=== PATIENT | female | born 1950 | race Caucasian/White ===

== ENCOUNTER → 2024-05-25 10:42 | Outpatient (REF) | payer MEDICARE, OTHER, SELFPAY | LOC: HWWDC 10:42 | PROVIDERS: ATTENDING PHYSICIAN Internal Medicine | DX: Z12.31 Encounter for screening mammogram for malignant neoplasm of breast (principal) | CPT/HCPCS: 77063; 77067 ==

== ENCOUNTER 2025-02-11 00:52 | Inpatient (IN) | payer MEDICARE, OTHER, SELFPAY ==
[2025-02-10 23:07] VITALS: BP 155/71
[2025-02-10 23:11] VITALS: BP 155/71
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
[2025-02-10 23:58] LABS: Hematocrit 41.3 % (37.0-47.0); Hemoglobin 13.9 g/dL (12.0-16.0); Mean Corp Hgb Conc. 33.7 g/dL (33.0-37.0); Mean Corpuscular Hgb 29.7 pg (27.0-31.0); Mean Corpuscular Volume 88.2 fL (81.0-99.0); Mean Platelet Volume 10.8 fL (7.4-10.4); Platelet Count 175 10^3/uL (130-400); Red Blood Cell Count 4.68 10^6/uL (4.20-5.40); Red Cell Dist. Width 13.3 % (11.5-14.5); White Blood Cell Count 23.1 10^3/uL (4.8-10.8)
[2025-02-11] VITALS (10 sets, daily range): BP systolic 102–160; BP diastolic 58–86; PULSE 99; O2SAT 93; BMI 27.9
[2025-02-11] MEDS: NSS 1000 IV (00:02)
[2025-02-11] MEDS: ROCEPHIN 1000 MG IV (00:03)
[2025-02-11] MEDS: DUONEB 3 ML INH ×6 (00:03→19:14)
[2025-02-11] MEDS: ZITHROMAX INFUSION 250 IV (00:03)
[2025-02-11 00:04] LABS: ALT (SGPT) 19 U/L (0-35); AST (SGOT) 32 U/L (14-36); Alkaline Phosphatase 72 U/L (38-126); Blood Urea Nitrogen 14 mg/dl (7-17); Calcium 9.7 mg/dl (8.4-10.2); Carbon Dioxide 22 mmol/L (22-30); Chloride 99 mmol/L (98-107); Glucose 162 mg/dl (70-99); Lactic Acid 1.5 mmol/L (0.7-2.0); Potassium 4.6 mmol/L (3.5-5.1); Sodium 131 mmol/L (135-145); Total Bilirubin 1.2 mg/dl (0.2-1.3); Total Protein 7.1 g/dl (6.3-8.2); eGFR > 60.00
[2025-02-11 00:11] LABS: COVID-19 Antigen Negative (Negative)
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
[2025-02-11] MEDS: OFIRMEV 100 IV (00:18)
[2025-02-11 00:58] LABS: Troponin I 0.013 ng/ml
[2025-02-11 01:02] LABS: Absolute Neutrophils -Man Diff 21.4 10^3/uL (1.4-6.5); Band Neutrophils 22 % (0-3); Eosinophils 4 % (0-6); Lymphocytes 4 % (20-51); Metamyelocytes 1 % (-); Monocytes 2 % (2-9); Segmented Neutrophils 71 % (42-75)
[2025-02-11 01:03] LABS: Normal RBC Morphology Yes; Platelets Checked Yes; Total Cells Counted 100; Toxic Granulation 1+; Vacuolated Segs Occasional
[2025-02-11] MEDS: NSS 500 IV ×2 (04:21→18:18)
[2025-02-11] MEDS: ROBITUSSIN DM 5 ML PO ×3 (04:23→21:20)
[2025-02-11 07:24] LABS: Blood Urea Nitrogen 13 mg/dl (7-17); Calcium 8.8 mg/dl (8.4-10.2); Carbon Dioxide 20 mmol/L (22-30); Chloride 102 mmol/L (98-107); Estimated Creatinine Clearance 74 ml/min; Glucose 121 mg/dl (70-99); Sodium 135 mmol/L (135-145); eGFR > 60.00
[2025-02-11 07:36] LABS: Hematocrit 39.5 % (37.0-47.0); Hemoglobin 13.1 g/dL (12.0-16.0); Mean Corp Hgb Conc. 33.2 g/dL (33.0-37.0); Mean Corpuscular Hgb 30.2 pg (27.0-31.0); Mean Platelet Volume 11.6 fL (7.4-10.4); Platelet Count 167 10^3/uL (130-400); Red Blood Cell Count 4.34 10^6/uL (4.20-5.40); Red Cell Dist. Width 13.3 % (11.5-14.5); White Blood Cell Count 23.9 10^3/uL (4.8-10.8)
[2025-02-11 07:52] LABS: Procalcitonin 1.77 ng/ml (0.0-0.25)
[2025-02-11] MEDS: COZAAR 50 MG PO (08:45)
[2025-02-11] MEDS: MUCINEX 600 MG PO ×2 (08:45→21:16)
[2025-02-11] MEDS: PROTONIX 20 MG PO (08:45)
[2025-02-11] MEDS: ASPIR LOW (ENTERIC COATED) 81 MG PO (08:45)
--- NOTE | 2025-02-11 12:45 | CM ---
CM reviewed chart, patient seen bedside with spouse, initial assessment completed by spouse. Patient and spouse reside together in a two story home, one step to enter, patient bedroom on second floor. Patient has a walker and wheelchair at home,
wheelchair used for longer distances. Spouse reports patient is current with [facility] outpatient therapy, [facility] in past, unsure agency, [facility] in past. Patient PCP [facility], pharmacy [facility], confirms prescription coverage.
Patient currently on O2, does not wear home O2. CM will continue to follow for all discharge planning needs.
Plan; current with outpatient therapy, may need SNF, watch for further recommendations
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
[2025-02-11] MEDS: NSS IV (15:38)
[2025-02-11] MEDS: LOVENOX 40 MG SC (18:18)
[2025-02-11] MEDS: LIPITOR 20 MG PO (21:16)
[2025-02-12] MEDS: STERILE WATER FOR INJECTION 10 ML IV ×2 (01:18→23:03)
[2025-02-12] MEDS: ROCEPHIN 1000 MG IV ×2 (01:18→23:03)
[2025-02-12] MEDS: NSS 500 IV (01:18)
[2025-02-12] MEDS: ZITHROMAX INFUSION 250 IV ×2 (01:19→23:04)
[2025-02-12 03:30] VITALS: BP 171/100
--- NOTE | 2025-02-12 04:20 | PTCARENOTE ---
Patient's automatic BP 171/100, HR 106. Manual BP 166/88. Provider notified. This RN suggested PRN hydralazine for SBP >160. No new orders placed. Will continue to monitor BP and HR.
[2025-02-12] MEDS: NSS IV (04:36)
[2025-02-12 06:45] LABS: Hematocrit 35.8 % (37.0-47.0); Hemoglobin 11.8 g/dL (12.0-16.0); Mean Corpuscular Hgb 29.6 pg (27.0-31.0); Mean Corpuscular Volume 89.7 fL (81.0-99.0); Mean Platelet Volume 10.7 fL (7.4-10.4); Platelet Count 170 10^3/uL (130-400); Red Blood Cell Count 3.99 10^6/uL (4.20-5.40); Red Cell Dist. Width 13.6 % (11.5-14.5); White Blood Cell Count 16.1 10^3/uL (4.8-10.8)
[2025-02-12 07:11] LABS: Blood Urea Nitrogen 11 mg/dl (7-17); Calcium 8.5 mg/dl (8.4-10.2); Carbon Dioxide 21 mmol/L (22-30); Chloride 109 mmol/L (98-107); Estimated Creatinine Clearance 74 ml/min; Glucose 104 mg/dl (70-99); Potassium 4.2 mmol/L (3.5-5.1); Sodium 136 mmol/L (135-145); eGFR > 60.00
[2025-02-12] MEDS: DUONEB 3 ML INH ×3 (07:23→20:44)
[2025-02-12] MEDS: SODIUM CHLORIDE 3% FOR INHALATION 1 VIAL INH ×2 (07:23→20:44)
[2025-02-12 07:42] VITALS: BP 148/85
[2025-02-12] MEDS: ASPIR LOW (ENTERIC COATED) 81 MG PO (08:12)
[2025-02-12] MEDS: PROTONIX 20 MG PO (08:12)
[2025-02-12] MEDS: COZAAR 50 MG PO (08:12)
[2025-02-12] MEDS: MUCINEX 600 MG PO ×2 (08:12→21:29)
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
--- NOTE | 2025-02-12 10:24 | CM ---
Patient seen bedside with spouse, discussed PT recommendation of SNF. Spouse not agreeable to rehab, discussed option for home services, spouse not interested at this time and wants to take patient home upon discharge. Pulmonary following patient,
watch for home O2 needs. CM will continue to follow for all discharge planning needs.
Plan; spouse declining SNF/VN services, home with family, watch for home O2 needs.
[2025-02-12] MEDS: DUONEB INH ×2 (11:14→15:01)
[2025-02-12 11:22] VITALS: BP 148/87
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
[2025-02-12 15:29] VITALS: BP 172/85
[2025-02-12] MEDS: LOVENOX 40 MG SC (18:22)
[2025-02-12] MEDS: LIPITOR 20 MG PO (21:29)
[2025-02-12] MEDS: ROBITUSSIN DM 5 ML PO (22:53)
[2025-02-12 23:15] VITALS: BP 158/82
[2025-02-13] MEDS: ROBITUSSIN DM 5 ML PO ×4 (03:57→22:36)
[2025-02-13 07:10] VITALS: BP 180/91
[2025-02-13 07:14] LABS: Hematocrit 33.2 % (37.0-47.0); Hemoglobin 11.3 g/dL (12.0-16.0); Mean Corpuscular Hgb 30.4 pg (27.0-31.0); Mean Corpuscular Volume 89.2 fL (81.0-99.0); Mean Platelet Volume 11.1 fL (7.4-10.4); Platelet Count 175 10^3/uL (130-400); Red Blood Cell Count 3.72 10^6/uL (4.20-5.40); Red Cell Dist. Width 13.5 % (11.5-14.5); White Blood Cell Count 11.4 10^3/uL (4.8-10.8)
[2025-02-13] MEDS: DUONEB 3 ML INH ×2 (07:18→11:48)
[2025-02-13] MEDS: SODIUM CHLORIDE 3% FOR INHALATION 1 VIAL INH ×2 (07:18→19:26)
[2025-02-13 08:09] LABS: Blood Urea Nitrogen 9 mg/dl (7-17); Calcium 8.5 mg/dl (8.4-10.2); Carbon Dioxide 24 mmol/L (22-30); Chloride 105 mmol/L (98-107); Estimated Creatinine Clearance 74 ml/min; Glucose 113 mg/dl (70-99); Potassium 3.8 mmol/L (3.5-5.1); Sodium 137 mmol/L (135-145); eGFR > 60.00
[2025-02-13] MEDS: COZAAR 50 MG PO (09:18)
[2025-02-13] MEDS: PROTONIX 20 MG PO (09:18)
[2025-02-13] MEDS: MUCINEX 600 MG PO ×2 (09:18→20:48)
[2025-02-13] MEDS: ASPIR LOW (ENTERIC COATED) 81 MG PO (09:18)
[2025-02-13] MEDS: NON-FORMULARY ITEM 75 MG PO (10:42)
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
[2025-02-13 12:19] VITALS: BP 134/75
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
[2025-02-13] MEDS: SODIUM CHLORIDE 3% FOR INHALATION INH (14:07)
[2025-02-13] MEDS: VENTOLIN NEBULES INH (14:07)
[2025-02-13 15:00] VITALS: BP 155/73
[2025-02-13] MEDS: LOVENOX 40 MG SC (17:09)
[2025-02-13] MEDS: VENTOLIN NEBULES 2.5 MG INH (19:26)
[2025-02-13] MEDS: LIPITOR 20 MG PO (20:48)
[2025-02-13] MEDS: STERILE WATER FOR INJECTION 10 ML IV (23:10)
[2025-02-13] MEDS: ZITHROMAX INFUSION 250 IV (23:10)
[2025-02-13] MEDS: ROCEPHIN 1000 MG IV (23:10)
[2025-02-13 23:21] VITALS: BP 167/73
[2025-02-14 04:08] VITALS: BP 149/77
[2025-02-14 06:07] LABS: Hematocrit 34.7 % (37.0-47.0); Hemoglobin 11.5 g/dL (12.0-16.0); Mean Corp Hgb Conc. 33.1 g/dL (33.0-37.0); Mean Corpuscular Hgb 29.9 pg (27.0-31.0); Mean Corpuscular Volume 90.1 fL (81.0-99.0); Mean Platelet Volume 11.1 fL (7.4-10.4); Platelet Count 194 10^3/uL (130-400); Red Blood Cell Count 3.85 10^6/uL (4.20-5.40); Red Cell Dist. Width 13.6 % (11.5-14.5); White Blood Cell Count 7.5 10^3/uL (4.8-10.8)
[2025-02-14 06:38] LABS: Blood Urea Nitrogen 9 mg/dl (7-17); Calcium 8.9 mg/dl (8.4-10.2); Carbon Dioxide 25 mmol/L (22-30); Chloride 104 mmol/L (98-107); Estimated Creatinine Clearance 63 ml/min; Glucose 115 mg/dl (70-99); Potassium 3.8 mmol/L (3.5-5.1); Sodium 137 mmol/L (135-145); eGFR > 60.00
[2025-02-14] MEDS: VENTOLIN NEBULES 2.5 MG INH ×3 (07:13→19:35)
[2025-02-14] MEDS: SODIUM CHLORIDE 3% FOR INHALATION 1 VIAL INH ×3 (07:13→19:35)
[2025-02-14 07:32] VITALS: BP 136/93
[2025-02-14] MEDS: MUCINEX 600 MG PO ×2 (07:33→20:16)
[2025-02-14] MEDS: ASPIR LOW (ENTERIC COATED) 81 MG PO (07:33)
[2025-02-14] MEDS: NON-FORMULARY ITEM 75 MG PO (07:33)
[2025-02-14] MEDS: COZAAR 50 MG PO (07:33)
[2025-02-14] MEDS: ROBITUSSIN DM 5 ML PO ×3 (07:33→23:26)
[2025-02-14] MEDS: PROTONIX 20 MG PO (07:33)
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
[2025-02-14] MEDS: MILK OF MAGNESIA 30 ML PO (14:09)
[2025-02-14 15:00] VITALS: BP 123/59
[2025-02-14] MEDS: LOVENOX 40 MG SC (17:02)
[2025-02-14] MEDS: LIPITOR 20 MG PO (22:09)
[2025-02-14] MEDS: ROCEPHIN 1000 MG IV (23:26)
[2025-02-14] MEDS: STERILE WATER FOR INJECTION 10 ML IV (23:26)
[2025-02-14] MEDS: ZITHROMAX INFUSION 250 IV (23:27)
[2025-02-14 23:34] VITALS: BP 127/76
[2025-02-15] MEDS: ROBITUSSIN DM 5 ML PO (06:01)
[2025-02-15 07:30] VITALS: BP 150/81
[2025-02-15] MEDS: VENTOLIN NEBULES 2.5 MG INH ×2 (07:40→13:44)
[2025-02-15] MEDS: SODIUM CHLORIDE 3% FOR INHALATION 1 VIAL INH ×2 (07:40→13:44)
[2025-02-15] MEDS: PROTONIX 20 MG PO (09:39)
[2025-02-15] MEDS: MUCINEX 600 MG PO (09:39)
[2025-02-15] MEDS: ASPIR LOW (ENTERIC COATED) 81 MG PO (09:40)
[2025-02-15] MEDS: COZAAR 50 MG PO (09:40)
[2025-02-15] MEDS: NON-FORMULARY ITEM 75 MG PO (09:40)
[2025-02-15 10:48] VITALS: BP 118/67; PULSE 87; O2SAT 94
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
[2025-02-15 11:21] LABS: Hematocrit 37.3 % (37.0-47.0); Hemoglobin 12.2 g/dL (12.0-16.0); Mean Corp Hgb Conc. 32.7 g/dL (33.0-37.0); Mean Corpuscular Hgb 29.5 pg (27.0-31.0); Mean Corpuscular Volume 90.3 fL (81.0-99.0); Mean Platelet Volume 10.8 fL (7.4-10.4); Platelet Count 206 10^3/uL (130-400); Red Blood Cell Count 4.13 10^6/uL (4.20-5.40); Red Cell Dist. Width 13.6 % (11.5-14.5)
--- NOTE | 2025-02-15 11:48 | CM ---
Spoke with patient an spouse bedside.
Patient remains on oxygen 2 liters.
Continues IV anbx and nebs.
Discussed home with VN and oxygen.
PT recommending skilled rehab, patient and spouse not agreeable at this time, would prefer home with VN.
Patient and and spouse agreeable to [facility].
Referrals placed to [facility].
Plan: home with [facility] and possible home oxygen needs.
[2025-02-15 13:38] LABS: Blood Urea Nitrogen 13 mg/dl (7-17); Calcium 8.9 mg/dl (8.4-10.2); Carbon Dioxide 27 mmol/L (22-30); Chloride 107 mmol/L (98-107); Estimated Creatinine Clearance 63 ml/min; Glucose 112 mg/dl (70-99); Potassium 4.2 mmol/L (3.5-5.1); Sodium 141 mmol/L (135-145); eGFR > 60.00
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
--- NOTE | 2025-02-15 13:49 | W.DS.TRANS ---
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
-
Discharge Instructions:
Discharge Diagnosis/Procedures Sepsis - POA
RML and RLL pneumonia
Acute hypoxic respiratory failure
Diet Low Fat,Low Cholesterol
Activity As tolerated
Blood Work cbc and bmp in 3-5 days
Instructions:
Stand-Alone Forms:
Changes to Home Medications: Yes
Discharge Medications:
DC Medications w/original date entered in [employer]
aspirin 81 mg tablet,delayed release 81 mg PO DAILY Blood clot prevention/tx 02/19/18
losartan 50 mg tablet 50 mg PO DAILY Blood pressure 01/12/19
acetaminophen 500 mg tablet 1,000 mg PO Q6HPRN PRN head ache/mild pain 02/10/25
atorvastatin 20 mg tablet 20 mg PO HS High Cholesterol 02/10/25
cholecalciferol (vitamin D3) 25 mcg (1,000 unit) tablet (Vitamin D3) 25 mcg PO DAILY Supplement 02/10/25
coenzyme Q10 100 mg capsule (CoQ-10) 100 mg PO DAILY Supplement 02/10/25
d-mannose 1 ea PO BID Supplement 02/10/25
magnesium oxide 800 mg PO DAILYPRN PRN constipation 02/10/25
methenamine hippurate 1 gram tablet 1 g PO DAILY Infection 02/10/25
metronidazole 0.75 % topical cream 1 applic topical BIDPRN PRN rosacea 02/10/25
omeprazole 10 mg capsule,delayed release 10 mg PO DAILY Gastrointestinal Issue 02/10/25
vibegron 75 mg tablet (Gemtesa) 75 mg PO DAILY Urinary Issue 02/10/25
albuterol sulfate 2.5 mg/3 mL (0.083 %) solution for nebulization 2.5 mg (3 mL) inhalation R Q4HPRN PRN shortness breath/wheezing #180 mL 02/15/25
azithromycin 250 mg tablet 500 mg (2 x 250 mg) PO Q24H 1 day #2 tabs 02/15/25
cefdinir 300 mg capsule 300 mg PO Q12H 3 days #6 caps 02/15/25
Home Medication Changes
albuterol sulfate 2.5 mg/3 mL (0.083 %) solution for nebulization 2.5 mg (3 mL) inhalation R Q4HPRN PRN shortness breath/wheezing #180 mL 02/15/25
azithromycin 250 mg tablet 500 mg (2 x 250 mg) PO Q24H 1 day #2 tabs 02/15/25
cefdinir 300 mg capsule 300 mg PO Q12H 3 days #6 caps 02/15/25
Pending Results: No
--- NOTE | 2025-02-15 14:14 | VNURNOTE ---
Home health liaison met with patient and spouse to discuss [facility] services, visit scheduling/frequency, homebound status and pet policy. Patient/spouse understand home visits will be 1-2 times a week to assess and teach medical management. Patient
aware a visiting nurse will contact them for start of care within 1-2 days after discharge from . [facility] Referral completed in care port. Patient states she does not require oxygen at discharge. Is currently on room air.
[2025-02-15 15:33] VITALS: BP 110/65
== END 2025-02-15 17:17 | disposition home health service (06) | DRG 871 ==
LOC: 4 EAST ACU 00:52
PROVIDERS: Hospitalist; ADMITTING PHYSICIAN Internal Medicine; ATTENDING PHYSICIAN Internal Medicine; CONSULT PHYSICIAN Internal Medicine Critical Care Medicine; EMERGENCY PHYSICIAN Emergency Medicine
DX: A41.9 Sepsis, unspecified organism (principal); J18.9 Pneumonia, unspecified organism; J69.0 Pneumonitis due to inhalation of food and vomit; I69.354 Hemiplegia and hemiparesis following cerebral infarction affecting left non-dominant side; J98.11 Atelectasis; T17.590A Other foreign object in bronchus causing asphyxiation, initial encounter; G25.9 Extrapyramidal and movement disorder, unspecified; K44.9 Diaphragmatic hernia without obstruction or gangrene; E78.00 Pure hypercholesterolemia, unspecified; Z11.52 Encounter for screening for COVID-19; F41.9 Anxiety disorder, unspecified; N32.81 Overactive bladder; J45.909 Unspecified asthma, uncomplicated; I10 Essential (primary) hypertension; K21.9 Gastro-esophageal reflux disease without esophagitis; Z88.0 Allergy status to penicillin; Z79.82 Long term (current) use of aspirin; Z86.718 Personal history of other venous thrombosis and embolism; Z80.1 Family history of malignant neoplasm of trachea, bronchus and lung; Z98.1 Arthrodesis status; M81.0 Age-related osteoporosis without current pathological fracture; R13.10 Dysphagia, unspecified; Z87.440 Personal history of urinary (tract) infections; Z95.828 Presence of other vascular implants and grafts; Z99.3 Dependence on wheelchair; Z74.01 Bed confinement status
CPT/HCPCS: 71046; 71250; 80048; 80053; 83605; 84145; 84484; 85025; 85027; 87040; 87070; 87077; 87186; 87205; 87502; 87811; 93005; 94640; 94667; 94668; 94669; 96361; 96365; 96375; 97163; 97530; 99285

== ENCOUNTER 2025-05-09 18:28 | Inpatient (IN) | payer MEDICARE, OTHER, SELFPAY ==
[2025-05-09 12:32] VITALS: BP 149/75
[2025-05-09 12:53] LABS: % Basophils 0.5 % (0-2); % Eosinophils 1.3 % (0-6); % Immature Granulocytes 0.2 % (0-0.5); % Lymphocytes 25.9 % (20.5-51.1); % Monocytes 6.5 % (1.7-9.3); % Neutrophils 65.6 % (42.2-75.2); Absolute Eosinophils 0.1 10^3/uL (0-0.7); Absolute Lymphocytes 1.6 10^3/uL (1.2-3.4); Absolute Monocytes 0.4 10^3/uL (0.1-0.6); Absolute Neutrophils 4.2 10^3/uL (1.4-6.5); Hematocrit 41.4 % (37.0-47.0); Hemoglobin 13.9 g/dL (12.0-16.0); Mean Corp Hgb Conc. 33.6 g/dL (33.0-37.0); Mean Corpuscular Hgb 30.3 pg (27.0-31.0); Mean Corpuscular Volume 90.2 fL (81.0-99.0); Mean Platelet Volume 10.8 fL (7.4-10.4); Nucleated Red Blood Cells % 0 %; Platelet Count 198 10^3/uL (130-400); Red Blood Cell Count 4.59 10^6/uL (4.20-5.40); Red Cell Dist. Width 13.3 % (11.5-14.5); White Blood Cell Count 6.3 10^3/uL (4.8-10.8)
[2025-05-09 13:15] LABS: Lactic Acid 1.3 mmol/L (0.7-2.0)
[2025-05-09 13:17] LABS: ALT (SGPT) 17 U/L (0-35); AST (SGOT) 24 U/L (14-36); Albumin 4.3 g/dl (3.5-5.0); Alkaline Phosphatase 57 U/L (38-126); Blood Urea Nitrogen 21 mg/dl (7-17); Calcium 9.7 mg/dl (8.4-10.2); Carbon Dioxide 23 mmol/L (22-30); Chloride 109 mmol/L (98-107); Glucose 116 mg/dl (70-99); Potassium 4.6 mmol/L (3.5-5.1); Sodium 141 mmol/L (135-145); Total Bilirubin 0.7 mg/dl (0.2-1.3); Total Protein 7.2 g/dl (6.3-8.2); eGFR > 60.00
[2025-05-09 13:43] LABS: Urine Albumin Negative (Neg - Trace); Urine Bilirubin Negative (Negative); Urine Character Slightly Cloudy (Clear); Urine Color Yellow; Urine Glucose Negative (Negative); Urine Ketone Negative (Negative); Urine Leukocyte 3+ (Negative); Urine Nitrite Positive (Negative); Urine Occult Blood 1+ (Negative); Urine Urobilinogen Negative (Neg - 1+)
[2025-05-09 14:07] LABS: Urine Bacteria Many (Negative); Urine Squamous Cell >30 /LPF (Few); Urine White Cell >100 /HPF (0-5)
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
[2025-05-09] MEDS: MERREM 1000 MG IV (17:10)
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
[2025-05-09 19:40] VITALS: BP 152/79; BMI 26.4
--- NOTE | 2025-05-09 20:30 | PTCARENOTE ---
Pt transported from ED to 3W via wheelchair. Pt 1 assist/standby from wheelchair to bed. Vitals stable, pt AAOX3 able to make needs known. Oriented to room, call garcía within reach.
[2025-05-09] MEDS: HEPARIN 5000 UNITS SC (20:45)
[2025-05-09] MEDS: INVANZ 60 MG IV (22:21)
[2025-05-09] MEDS: LIPITOR 20 MG PO (22:21)
[2025-05-09 23:07] VITALS: BP 120/66
[2025-05-10 06:07] LABS: % Basophils 0.6 % (0-2); % Eosinophils 2.2 % (0-6); % Immature Granulocytes 0.3 % (0-0.5); % Lymphocytes 34.6 % (20.5-51.1); % Monocytes 7.5 % (1.7-9.3); % Neutrophils 54.8 % (42.2-75.2); Absolute Eosinophils 0.1 10^3/uL (0-0.7); Absolute Lymphocytes 2.3 10^3/uL (1.2-3.4); Absolute Monocytes 0.5 10^3/uL (0.1-0.6); Absolute Neutrophils 3.6 10^3/uL (1.4-6.5); Hematocrit 36.2 % (37.0-47.0); Hemoglobin 12.1 g/dL (12.0-16.0); Mean Corp Hgb Conc. 33.4 g/dL (33.0-37.0); Mean Corpuscular Hgb 29.8 pg (27.0-31.0); Mean Corpuscular Volume 89.2 fL (81.0-99.0); Mean Platelet Volume 11.8 fL (7.4-10.4); Nucleated Red Blood Cells % 0 %; Platelet Count 164 10^3/uL (130-400); Red Blood Cell Count 4.06 10^6/uL (4.20-5.40); Red Cell Dist. Width 13.2 % (11.5-14.5); White Blood Cell Count 6.5 10^3/uL (4.8-10.8)
[2025-05-10 07:59] VITALS: BP 154/104
[2025-05-10 08:02] LABS: ALT (SGPT) 14 U/L (0-35); AST (SGOT) 22 U/L (14-36); Albumin 3.6 g/dl (3.5-5.0); Alkaline Phosphatase 52 U/L (38-126); Blood Urea Nitrogen 18 mg/dl (7-17); Calcium 9.5 mg/dl (8.4-10.2); Carbon Dioxide 24 mmol/L (22-30); Chloride 109 mmol/L (98-107); Estimated Creatinine Clearance 50 ml/min; Glucose 99 mg/dl (70-99); Potassium 4.2 mmol/L (3.5-5.1); Sodium 140 mmol/L (135-145); Total Bilirubin 0.7 mg/dl (0.2-1.3); Total Protein 6.4 g/dl (6.3-8.2); eGFR > 60.00
[2025-05-10] MEDS: PROTONIX 20 MG PO (08:24)
[2025-05-10] MEDS: VITAMIN D3 (cholecalciferol) 125 MCG PO (08:24)
[2025-05-10] MEDS: ASPIR LOW (ENTERIC COATED) 81 MG PO (08:24)
[2025-05-10] MEDS: COZAAR 50 MG PO (08:24)
[2025-05-10] MEDS: HEPARIN 5000 UNITS SC ×2 (08:24→19:54)
--- NOTE | 2025-05-10 14:07 | W.PN.HOSP.TC ---
Today's Communication/Plan
-
Continue antibiotics.
Renal sonogram.
Follow-up blood cultures
Assessment / Plan
Assessment / Plan
Impression:
Presents with persistent dysuria.
Recurrent UTI with MDR E. coli
Recent hospitalization with multilobar pneumonia and hypoxic respiratory failure: 02/11 - 02/16/2025
Other conditions
Large right diaphragmatic hernia
Hypertension/hyperlipidemia
History of stroke 2018, mild left weakness
Aspiration syndrome, dysphagia
History of hepatitis C with treatment
Multiple abdominal surgeries including ileostomy �2 with reversal �2 1996 in 1997
History of multiple DVTs, post trauma
IVC filter �2
History of cervical spine fusion
Overactive bladder
Sedentary
Essential hypertension
Plan
Patient presents with persistent dysuria despite of outpatient antibiotic course
Afebrile, hemodynamically stable, nontoxic-appearing without evidence of systemic infection.
Normal WBC
Outpatient urine culture consistent with MDR E. coli
Blood cultures pending
Initiated on ertapenem
Follow blood cultures
Renal/bladder sonogram to rule out urinary tract abnormality
Recent admission with multilobar pneumonia and respiratory failure. Respiratory status stable with no new complaints.
History of CVA with left hemiparesis.
Neurologic status stable.
Continue aspirin
Aspiration risk.
Remains on regular diet
Essential hypertension on losartan
Dyslipidemia on statin
Anticipated Discharge: 24 - 48 hours
Subjective/Interval History
-
Date of Service: May 10, 2025
Objective Data
-
Labs:
Laboratory Results
05/10/25 05/10/25
05:46 06:53
WBC 6.5
Hgb 12.1
Hct 36.2 L
Plt Count 164
Sodium Cancelled 140
Potassium Cancelled 4.2
Chloride Cancelled 109 H
Carbon Dioxide Cancelled 24
BUN Cancelled 18 H
Creatinine Cancelled 0.8
Glucose Cancelled 99
Calcium Cancelled 9.5
Total Bilirubin Cancelled 0.7
AST Cancelled 22
ALT Cancelled 14
Alkaline Phosphatase Cancelled 52
Vital Signs:
Vital Signs
Temp Pulse Resp BP Pulse Ox
98.1 F 97 14 154/104 91
05/10/25 07:59 05/10/25 08:24 05/10/25 07:59 05/10/25 08:24 05/10/25 07:59
I&O
05/09/25 05/10/25 05/11/25
06:59 06:59 06:59
Intake Total 240 / 240
Balance 240 / 240
Physical Exam
-
General: Well Developed and No Apparent Distress
HEENT: Normocephalic, Atraumatic and Moist Mucous Membranes
Respiratory: Clear to Auscultation
Cardiac: Regular Rhythm and S1/S2; Negative Murmur, Rub or Gallop
GI: Soft, Nontender, Nondistended and Normal Bowel Sounds; Negative Organomegaly
Rectal: Deferred by Provider
Musculoskeletal: No Clubbing, No Cyanosis and No Edema
Skin: Negative Rash
Neuro: Nonfocal/Grossly Intact (Chronic left hemiparesis)
--- NOTE | 2025-05-10 15:17 | CM ---
Patient seen at bedside with
Dx: multi-drug resistant uti
PMH: hypertension, anxiety, hyperlipidemia, CVA with chronic left hemiparesis, hepatitis C status post treatment, ileostomy with reversal, recurrent DVT, history of IVC filter, cervical spine fusion, overactive bladder, GERD, osteoporosis
Patient lives with in 2 story home, 1 step to enter, flight to bedroom/bathroom
PLOF: independent with walker
DME: Walker, wheelchair (for long distance), shower chair, grab bars, commode
has had [facility] in past, good [facility] outpatient rehab in past, acute rehab
Denies insecurities
PT/OT to eval-tt hospitalist
PCP: Main Peña
Pharmacy: [facility]
PLAN: TBD, follow hospital progress, anticipate IV antibiotics
[2025-05-10 15:23] VITALS: BP 125/73
[2025-05-10] MEDS: NON-FORMULARY ITEM 75 MG PO (16:30)
[2025-05-10] MEDS: LIPITOR 20 MG PO (21:20)
[2025-05-10] MEDS: INVANZ 60 MG IV (21:20)
[2025-05-10 23:25] VITALS: BP 145/65
[2025-05-11] MEDS: NON-FORMULARY ITEM 75 MG PO (07:34)
[2025-05-11] MEDS: VITAMIN D3 (cholecalciferol) 125 MCG PO (07:35)
[2025-05-11] MEDS: ASPIR LOW (ENTERIC COATED) 81 MG PO (07:35)
[2025-05-11] MEDS: COZAAR 50 MG PO (07:35)
[2025-05-11] MEDS: PROTONIX 20 MG PO (07:35)
[2025-05-11] MEDS: HEPARIN 5000 UNITS SC ×2 (07:36→21:06)
[2025-05-11 07:40] VITALS: BP 153/78
[2025-05-11 09:10] VITALS: BP 153/90; BP 159/85; PULSE 84; PULSE 94; O2SAT 92
[2025-05-11 09:13] VITALS: BP 153/90; BP 159/85; PULSE 83; PULSE 99; O2SAT 92
--- NOTE | 2025-05-11 11:14 | PN.CDI ---
CDI
- -
CDI:
Physician Documentation Request
Admit Date: 05/09/25 18:28
Dear Doctor Christian,
Patient admitted for multidrug resistant UTI.
Selected Entries
05/09/25
12:32 05/09/25
23:07 05/10/25
07:59
Pulse 93 106 97
05/09/25
14:15 05/09/25
14:45 05/09/25
15:30
Resp Rate 25 26 26
Please clarify which of the following most accurately describes the status of the patient's infection:
Sepsis, POA
- Systemic manifestations of infection, with 2 or more SIRS criteria which include:
- Fever >100.9 degrees F or hypothermia < 96.8 degrees F
- Leukocytosis - WBC > 12,000 or leukopenia - WBC < 4,000 or > 10% bands
- Tachycardia > 90 beats per minute
- Tachypnea - RR > 20 breaths per minute or PaCO2 , 32mmHg
Source: Merck Manual 2013
- Indicate the known or suspected organism
- Indicate the known or suspected underlying infection, such as UTI, pneumonia or cellulitis
- Indicate if a suspected bacterial infection of unknown source
- Indicate if associated with an implanted device such as a F/C, PICC line, orthopedic hardware, etc.
Localized Infection Only, Without Systemic Illness
- indicate the site/source, such as UTI, pneumonia etc.
Other
Use of terms such as suspected, likely, concern for, or probable (associated with a specific diagnosis that is being evaluated, monitored, or treated as if it exists) are acceptable and can be coded in the inpatient setting, when documented at the
time of discharge.
Thank you,
Kaylee Whitten RN, BSN
CDI Specialist
Available via [place] text
Please use your independent medical judgment in providing your response.
--- NOTE | 2025-05-11 12:02 | CM ---
Renal US completed
cont on IV Ertapenem
PT/OT orders
PT rec home PT vs. outpatient
PLAN: home, follow hospital progress, anticipate IV antibiotics
[2025-05-11 15:00] VITALS: BP 136/70
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
[2025-05-11] MEDS: LIPITOR 20 MG PO (21:06)
[2025-05-11] MEDS: INVANZ 60 MG IV (21:06)
[2025-05-11 23:06] VITALS: BP 133/77
--- NOTE | 2025-05-12 04:48 | DOWNTIME ---
Addendum entered by Dana Nino RN 05/12/25 14:11:
Correction to downtime 05/12/2025 from 0100 to 05/12/25 at 0415.
Original Note:
There was a [employer] Client Tip Length Checker Downtime on 05/11/2025 from 0100 to 05/12/2025 at 0415. Downtime documentation of patient's care, including medication administrations, has been reconciled in the electronic record per guidelines. Refer to the
patient's paper chart under the miscellaneous tab to see printed paper medication records and downtime forms.
[2025-05-12 07:00] VITALS: BP 137/76
[2025-05-12] MEDS: NON-FORMULARY ITEM 75 MG PO (09:00)
[2025-05-12] MEDS: ASPIR LOW (ENTERIC COATED) 81 MG PO (09:04)
[2025-05-12] MEDS: HEPARIN 5000 UNITS SC (09:05)
[2025-05-12] MEDS: COZAAR 50 MG PO (09:05)
[2025-05-12] MEDS: PROTONIX 20 MG PO (09:07)
[2025-05-12] MEDS: VITAMIN D3 (cholecalciferol) 125 MCG PO (09:07)
--- NOTE | 2025-05-12 14:16 | CM ---
Patient continues on IV antibiotic
PT/OT rec Home Health
Will discuss options
PLAN: home with Home Health
[2025-05-12 15:00] VITALS: BP 122/67
--- NOTE | 2025-05-12 16:47 | W.DS.TRANS ---
DC Summary - [employer]
-
Discharge Instructions:
Discharge Diagnosis/Procedures UTI
Diet Regular
Instructions:
Stand-Alone Forms:
Changes to Home Medications: Yes
Discharge Medications:
DC Medications w/original date entered in [facility]
aspirin 81 mg tablet,delayed release 81 mg PO DAILY Blood clot prevention/tx 02/19/18
losartan 50 mg tablet 50 mg PO DAILY Blood pressure 01/12/19
atorvastatin 20 mg tablet 20 mg PO HS High Cholesterol 02/10/25
coenzyme Q10 100 mg capsule (CoQ-10) 100 mg PO DAILY Supplement 02/10/25
omeprazole 10 mg capsule,delayed release 10 mg PO DAILY Gastrointestinal Issue 02/10/25
vibegron 75 mg tablet (Gemtesa) 75 mg PO DAILY Urinary Issue 02/10/25
cholecalciferol (vitamin D3) 125 mcg (5,000 unit) tablet 125 mcg PO DAILY Supplement 05/09/25
d-mannose 500 mg capsule 1,000 mg PO DAILY Supplement 05/09/25
magnesium citrate 100 mg tablet 400 mg PO DAILYPRN PRN constipation 05/09/25
methenamine hippurate 1 gram tablet 1 g PO DAILY Urinary Issue 05/09/25
fosfomycin tromethamine 3 gram oral packet 3 g PO Q3D #3 ea 05/12/25
Home Medication Changes
Fosfomycin
Pending Results: No
[2025-05-12] MEDS: INVANZ 60 MG IV (17:37)
--- NOTE | 2025-05-12 18:38 | PTCARENOTE ---
Discharge orders written. Ordered pharmacy contacted patient to say prior auth was required for Fosfomycin. Dr. Gonzales notified. Pt and informed that they would need to stay to enable time to complete prior auth. Pt's stated they
would prefer to pay out of pocket. Ivanz administered. IV site removed. Discharge instructions reviewed. Pt's escorted her to car by their own wheelchair.
--- NOTE | 2025-05-13 09:08 | CM ---
Addendum entered by Kathy Zaragoza 05/14/25 08:06:
patient/ did not call back
Original Note:
late entry: patient dc last night on po antibiotic
transported home
left message with regarding home health
await call back
== END 2025-05-12 18:42 | disposition home or self-care (01) | DRG 690 ==
LOC: 3 WEST ACU 18:28
PROVIDERS: Emergency Medicine; ADMITTING PHYSICIAN Hospitalist; ATTENDING PHYSICIAN Internal Medicine; EMERGENCY PHYSICIAN Emergency Medicine; FAMILY PHYSICIAN Internal Medicine
DX: N39.0 Urinary tract infection, site not specified (principal); I69.354 Hemiplegia and hemiparesis following cerebral infarction affecting left non-dominant side; Z16.24 Resistance to multiple antibiotics; B96.20 Unspecified Escherichia coli [E. coli] as the cause of diseases classified elsewhere; I10 Essential (primary) hypertension; F41.9 Anxiety disorder, unspecified; N32.81 Overactive bladder; K21.9 Gastro-esophageal reflux disease without esophagitis; M81.0 Age-related osteoporosis without current pathological fracture; E78.00 Pure hypercholesterolemia, unspecified; K44.9 Diaphragmatic hernia without obstruction or gangrene; B19.20 Unspecified viral hepatitis C without hepatic coma; Z79.899 Other long term (current) drug therapy; Z86.19 Personal history of other infectious and parasitic diseases; Z86.718 Personal history of other venous thrombosis and embolism; Z87.440 Personal history of urinary (tract) infections; Z95.828 Presence of other vascular implants and grafts; Z98.1 Arthrodesis status; Z79.82 Long term (current) use of aspirin
CPT/HCPCS: 76770; 80053; 81003; 81015; 83605; 85025; 87040; 87077; 87086; 87181; 87186; 96374; 97116; 97162; 97166; 97530; 99285; J1335; J2185

== ENCOUNTER → 2025-09-07 14:21 | Outpatient (REF) | payer MEDICARE, OTHER, SELFPAY | LOC: HWWDC 14:21 | PROVIDERS: ATTENDING PHYSICIAN Internal Medicine | DX: Z12.31 Encounter for screening mammogram for malignant neoplasm of breast (principal) | CPT/HCPCS: 77063; 77067 ==

== ENCOUNTER → 2025-09-08 11:50 | Outpatient (REF) | payer MEDICARE, OTHER, SELFPAY | LOC: HWRAD 11:50 | PROVIDERS: ATTENDING PHYSICIAN Internal Medicine Critical Care Medicine; FAMILY PHYSICIAN Internal Medicine | DX: K44.9 Diaphragmatic hernia without obstruction or gangrene (principal); J18.9 Pneumonia, unspecified organism; J98.11 Atelectasis | CPT/HCPCS: 71250 ==

== ENCOUNTER 2025-11-07 22:38 | Inpatient (IN) | payer MEDICARE, OTHER, SELFPAY ==
[2025-11-07] VITALS (13 sets, daily range): BP systolic 99–139; BP diastolic 46–76; BMI 27.6
[2025-11-07] MEDS: NITROSTAT (SUBLINGUAL) 0.4 MG SL (18:09)
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
[2025-11-07] MEDS: LOW STRENGTH ASPIRIN 324 MG PO (18:17)
[2025-11-07 18:24] LABS: Hematocrit 44.7 % (37.0-47.0); Hemoglobin 15.3 g/dL (12.0-16.0); Mean Corp Hgb Conc. 34.2 g/dL (33.0-37.0); Mean Corpuscular Volume 87.3 fL (81.0-99.0); Nucleated Red Blood Cells % 0 %; Platelet Count 213 10^3/uL (130-400); Red Cell Dist. Width 13.8 % (11.5-14.5)
[2025-11-07] MEDS: MORPHINE SULFATE 4 MG IV (18:30)
[2025-11-07 18:34] LABS: INR 1.07; PT 14.1 Sec (11.4-14.6)
[2025-11-07 18:59] LABS: APTT 23.8 Sec (23.4-35.0)
[2025-11-07 18:59] LABS: COVID-19 Antigen Negative (Negative)
[2025-11-07 19:07] LABS: ALT (SGPT) 18 U/L (0-35); AST (SGOT) 36 U/L (14-36); Albumin 3.9 g/dl (3.5-5.0); Alkaline Phosphatase 57 U/L (38-126); Blood Urea Nitrogen 19 mg/dl (7-17); Calcium 9.3 mg/dl (8.4-10.2); Carbon Dioxide 22 mmol/L (22-30); Chloride 103 mmol/L (98-107); Estimated Creatinine Clearance 54 ml/min; Glucose 132 mg/dl (70-99); Potassium 5.0 mmol/L (3.5-5.1); Sodium 133 mmol/L (135-145); Total Protein 7.0 g/dl (6.3-8.2); eGFR > 60.00
[2025-11-07 19:22] LABS: Troponin I 0.959 ng/ml
[2025-11-07] MEDS: HEPARIN 25000 UNITS/250 ML IV (20:31)
[2025-11-07] MEDS: HEPARIN 4000 UNITS IV (20:33)
[2025-11-07 21:17] LABS: Troponin I 1.120 ng/ml
[2025-11-07] MEDS: LASIX 20 MG IV (22:27)
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
[2025-11-07 23:08] LABS: ACT-LR - POC 163 Seconds (116-155)
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
[2025-11-08] VITALS (7 sets, daily range): BP systolic 76–91; BP diastolic 36–57; O2SAT 95; BMI 26.5
--- NOTE | 2025-11-08 00:05 | PTCARENOTE ---
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 3ml removed from TR band at 0003am, no sign of bleeding. patient in SR rhythm to ST , tropinon sent, EKG done. belonging with . BP 89/49(60), heart rate 100, 96 % on 2 L NC.temp
98', CHG bath completed. patient denies pain, does have pain on movement. old bruising noted on left hip
[2025-11-08 00:39] LABS: Troponin I 0.866 ng/ml
[2025-11-08 00:59] LABS: Glucose - Point of Care 118 mg/dl (70-99)
--- NOTE | 2025-11-08 01:07 | PTCARENOTE ---
report given to Transport team RN, to fly to [facility]. Last 3 ml removed from Right TR band, called report Trauma SICU at receiving [facility].
--- NOTE | 2025-11-08 01:36 | ECGCV ---
<Sabino Law> notified of ECG critical value identified by electronic interpretation on ECG completed on <11/07/25>, at <2330>.
--- NOTE | 2025-11-08 02:42 | W.DCSUMMARY ---
Discharge Summary
Discharge Data
Date of Admission: 11/07/25
Date of Discharge: 11/08/25
Total time spent discharging patient (in min): 35
-
Pending Results: No
Hospital Course
Patient is a 75y F with PMH significant for hypertension and prior CVA who presents to ED for evaluation of left-sided chest pain on 11/07/25.
Patient suffered a fall 4 days prior to admission. Details of the fall are not clear, though she denies any loss of consciousness, head injury, etc.
Evaluation in the ED revealed the patient to have acute fractures of L sided ribs 2 through 8. Patient was tachypneic and was notably splinting with decreased excursion of the L chest on exam.
In addition, EKG was done in the ED with changes concerning for possible STEMI. Repeat EKG noted persistent changes and troponin during her ED visit increased from 0.959 to 1.120.
With possible STEMI / ACS, Cardiology was notified and patient was taken to the medical laboratory technical officer for urgent coronary evaluation.
Cardiac catheterization via the R radial artery was completed and showed no evidence of occlusive coronary disease. Patient was noted to have LVEF = 25-30% and LVEDP = 29 consistent with Takotsubo's cardiomyopathy.
Patient was seen and evaluated post-procedure. She denied any pain or dyspnea at that time.
With multiple L sided rib fractures, transfer to Trauma Center was recommended and discussed at length with patient and family.
Following cardiac catheterization, arrangements were made for patient transfer to Trauma Surgery service at [facility] - service of Dr. Mendez.
Transport was arranged and patient was transferred to that facility on 11/08/25 for ongoing care / monitoring.
Discharge Plan
-
Patient Disposition: Acute Care Hospital
Discharge Orders:
Discharge Patient (As Directed); Ordered 11/08/25
Ordered By: Tevin Waddell
Discharge Date and Time
Discharge Date/Time: 11/08/25 01:20
Print Language: [facility]
== END 2025-11-08 01:20 | disposition short-term general hospital (02) | DRG 286 ==
LOC: CVICU 22:38
PROVIDERS: ADMITTING PHYSICIAN Hospitalist; CONSULT PHYSICIAN Internal Medicine Interventional Cardiology; EMERGENCY PHYSICIAN Student in an Organized Health Care Education/Training Program; FAMILY PHYSICIAN Internal Medicine
PROC: B2111ZZ Fluoroscopy of Multiple Coronary Arteries using Low Osmolar Contrast (ICD-10-PCS; 2025-11-07)
PROC: 4A023N7 Measurement of Cardiac Sampling and Pressure, Left Heart, Percutaneous Approach (ICD-10-PCS; 2025-11-07)
DX: I51.81 Takotsubo syndrome (principal); I50.43 Acute on chronic combined systolic (congestive) and diastolic (congestive) heart failure; E87.1 Hypo-osmolality and hyponatremia; S22.42XA Multiple fractures of ribs, left side, initial encounter for closed fracture; I69.354 Hemiplegia and hemiparesis following cerebral infarction affecting left non-dominant side; R64 Cachexia; W19.XXXA Unspecified fall, initial encounter; K21.9 Gastro-esophageal reflux disease without esophagitis; I11.0 Hypertensive heart disease with heart failure; E78.00 Pure hypercholesterolemia, unspecified; N32.81 Overactive bladder; M81.0 Age-related osteoporosis without current pathological fracture; Z79.82 Long term (current) use of aspirin; D72.829 Elevated white blood cell count, unspecified; R22.42 Localized swelling, mass and lump, left lower limb; Z87.440 Personal history of urinary (tract) infections; Z86.718 Personal history of other venous thrombosis and embolism; Z11.52 Encounter for screening for COVID-19; Z68.26 Body mass index [BMI] 26.0-26.9, adult
CPT/HCPCS: 71101; 80053; 82962; 84484; 85025; 85347; 85610; 85730; 87502; 87811; 90662; 93005; 93306; 93458; 96374; 96375; 96376; 99152; 99285; C1769; C1894; G0008; Q9967